=== PATIENT | female | born 1965 | race American Indian/Alaskan Native ===

== ENCOUNTER 2017-02-27 13:21 | Outpatient (CLI) | payer OTHER ==
--- NOTE | 2017-02-27 16:00 | Mammography Report ---
BONE DEXA:02/27/17 13:21:00 CLINICAL: Postmenopausal. COMPARISON: 01/30/15 TECHNIQUE: Two site bone DEXA performed on an Hologic scanner. FINDINGS: The average BMD of the lumbar spine L1-L4 is 0.966g/cm squared with a T-score of -0.7 and a Z-score of +0.1. This compares to 0.939g/cm squared on the last exam and represents a +3.0% change from the previous baseline. The average BMD of the left hip is 0.865g/cm squared with a T-score of -0.6 and a Z-score of -0.1. This compares to 0.8-0g/cm squared on the last exam and represents a +5.5% change from the previous baseline. IMPRESSION: 1. WHO classification: Normal with average fracture risk based on spine measurements. A modest improvement in spine BMD compared to the prior exam. 2. WHO classification: Osteopenia with increased fracture risk based on left hip measurements. A modest improvement in left hip BMD compared to the prior exam. RECOMMENDATION: Clinical correlation and routine screening. DEFINITIONS: BMD = Bone Mineral Density T-score = BMD related to mean peak bone mass of young adult (mean expressed in Standard Deviation) Z-score = Age matched BMD expressed in SD World Health Organization (WHO) Diagnostic Criteria Normal T-score > -1 SD Osteopenia T-score between -1 and -2.4 SD Osteoporosis T-score -2.5 SD or below NOTE: BMD is not the only risk factor for fracture; also consider factors such as the patient's age, risk of falling, previous osteoporotic fracture, family history of osteoporotic fractures, current smoker, and low body weight. Z-scores are not calculated if >80 years of age.
== END 2017-02-27 13:22 | disposition home or self-care (01) ==
LOC: SPVWC 13:21
PROVIDERS: ATTEND Family Medicine
DX: M85.88 Other specified disorders of bone density and structure, other site (principal); N95.1 Menopausal and female climacteric states
CPT/HCPCS: 77080